=== PATIENT | male | born 1990 | race African-American/Black ===

== ENCOUNTER 2016-11-28 14:59 | Emergency (ER) | payer SELFPAY ==
[~2016-11-28] VITALS: Ht 182.9 cm; Wt 79.5 kg
[2016-11-28] MEDS ORDERED: KEFLEX500 MG PO (15:56)
[2016-11-28 16:42] VITALS: BP 125/72
== END 2016-11-28 16:43 | disposition home or self-care (01) ==
LOC: EDSEX 14:59 → EME 14:59
PROC: 3E0234Z Introduction of Serum, Toxoid and Vaccine into Muscle, Percutaneous Approach (ICD-10-PCS; principal; 2016-11-28)
DX: S81.811A Laceration without foreign body, right lower leg, initial encounter (principal); L03.115 Cellulitis of right lower limb; Y92.828 Other wilderness area as the place of occurrence of the external cause; W22.8XXA Striking against or struck by other objects, initial encounter; Z23 Encounter for immunization; F17.200 Nicotine dependence, unspecified, uncomplicated
CPT/HCPCS: 99281; 99284

== ENCOUNTER 2016-12-01 18:55 | Emergency (ER) | payer SELFPAY ==
[~2016-12-01] VITALS: Ht 182.9 cm; Wt 77.7 kg
[~2016-12-01 18:55] MED LIST: KEFLEX500 MG PO
[2016-12-01] MEDS ORDERED: BACTRIM,SEPT1 TABLET PO (20:16)
[2016-12-01] MEDS ORDERED: PREDNISONE5 MG PO (20:17)
[2016-12-01 20:47] VITALS: BP 00/0
== END 2016-12-01 20:50 | disposition home or self-care (01) ==
LOC: EME 18:55
DX: L50.9 Urticaria, unspecified (principal); F17.200 Nicotine dependence, unspecified, uncomplicated
CPT/HCPCS: 99281; 99283

== ENCOUNTER 2016-12-13 17:07 | Emergency (ER) | payer SELFPAY ==
[~2016-12-13] VITALS: Ht 152.4 cm; Wt 80.2 kg
[~2016-12-13 17:07] MED LIST changes: +BACTRIM,SEPT1 TABLET PO; +PREDNISONE5 MG PO
[2016-12-13 17:41] VITALS: BP 121/65
[2016-12-13] MEDS ORDERED: BENADRYL25 MG PO (19:27)
[2016-12-13] MEDS ORDERED: PEPCID20 MG PO (19:27)
== END 2016-12-13 19:42 | disposition home or self-care (01) ==
LOC: EME 17:07
DX: L30.9 Dermatitis, unspecified (principal); L50.9 Urticaria, unspecified
CPT/HCPCS: 99281; 99284; J1100

== ENCOUNTER 2017-06-01 02:44 | Emergency (ER) | payer SELFPAY ==
[~2017-06-01] VITALS: Ht 182.9 cm; Wt 78.4 kg
[~2017-06-01 02:44] MED LIST changes: +BENADRYL25 MG PO; +PEPCID20 MG PO
[2017-06-01 02:47] VITALS: BP 134/75
== END 2017-06-01 02:58 | disposition left against medical advice (07) ==
LOC: EME 02:44
DX: R09.89 Other specified symptoms and signs involving the circulatory and respiratory systems (principal); Z53.21 Procedure and treatment not carried out due to patient leaving prior to being seen by health care provider
CPT/HCPCS: 80048; 85027